=== PATIENT | female | born 1945 | race Caucasian/White ===

== ENCOUNTER 2017-02-01 05:41 | Inpatient (IN) ==
[2017-02-01] MEDS ORDERED: VANCOMYCIN 1,000 MG VIAL ONE (06:02)
[2017-02-01] MEDS ORDERED: ceFAZolin 1,000 MG VIAL ONE (06:03)
[2017-02-01] MEDS ORDERED: SODIUM CHLORIDE 0.9% 100 ML IV ONE ×2 (06:03→09:19)
[2017-02-01] MEDS ORDERED: TRANEXAMIC ACID 1,000 MG/10 ML VIAL IV ONE (06:17)
[2017-02-01] MEDS: LACTATED RINGERS 1,000 ML IV SCH ×5 (06:30→22:30)
--- NOTE | 2017-02-01 06:43 | History and Physical Update ---
History and Physical Update - History and Physical H&P was reviewed, the patient examined and there: are no changes in the patients condition since last H&P was completed.
[2017-02-01] MEDS ORDERED: VANCOMYCIN INJ 1,000 MG in SODIUM CHLORIDE 0.9% 250 ML IV ONE ×2 (07:00→18:30)
[2017-02-01] MEDS ORDERED: PROPOFOL 200 MG/20 ML VIAL IV ONE (07:28)
[2017-02-01] MEDS ORDERED: ONDANSETRON 4 MG/2 ML VIAL ONE (07:28)
[2017-02-01] MEDS ORDERED: LIDOCAINE 1% 5 ML VIAL ONE (07:28)
[2017-02-01] MEDS ORDERED: KETOROLAC 30 MG/1 ML VIAL ONE (07:28)
[2017-02-01] MEDS ORDERED: PANTOPRAZOLE 40 MG TABLET PO PRN (08:03)
[2017-02-01] MEDS ORDERED: ONDANSETRON 4 MG/2 ML VIAL IV PRN (08:04)
[2017-02-01] MEDS ORDERED: MORPHINE 2 MG/1 ML SYRINGE IV PRN ×2 (08:04)
[2017-02-01] MEDS ORDERED: MAGNESIUM HYDROXIDE SUSP 30 ML UDCUP PO PRN (08:04)
[2017-02-01] MEDS ORDERED: oxyCODONE IR 5 MG TABLET PO PRN ×2 (08:04)
[2017-02-01] MEDS ORDERED: diphenhydrAMINE CAP 25 MG CAPSULE PO PRN (08:04)
[2017-02-01] MEDS ORDERED: BACITRACIN OINT 0.9 GM PACK TOP ONE (08:51)
[2017-02-01] MEDS ORDERED: ROPIVACAINE 0.5% 30 ML VIAL ONE (09:02)
--- NOTE | 2017-02-01 09:02 | Operative Note ---
Date of procedure: 02/01/17 Procedure: DIAGNOSIS: Bilateral knee primary osteoarthrosis PROCEDURE: Left total knee arthroplasty (cpt #42393) SURGEON: Precious SECTIONAL [employer]T MOLD ASSEMBLER: Rodney Chakraborty ANESTHESIA: Spinal converted to general with a postoperative adductor canal block PROCEDURE and FINDINGS: After adequate was induced, the patient's knee was prepped and draped in the usual sterile fashion. The limb was exsanguinated with Esmarch. Tourniquet was inflated to 300 mmHg. A median parapatellar approach was made. Femur was cut using an intramedullary guide and a 4 in 1 cutting jig in 5 degrees of valgus. ACL and menisci were excised. Tibia was cut using intramedullary guide. Patella was cut using freehand technique. Components were trialed. Tibial fin was prepared. Components are cemented in place using Palacos cement and modern cementing techniques. Cement was removed. A 1/8 inch Hemovac drain was placed. The knee was well-balanced and full range of motion with central tracking patella. Deep layers closed with 0-0 Vicryl. Superficial layers were closed with 2-0 and 3-0 Vicryl. Skin was approximated with dasia. Bacitracin and a sterile dressing was applied. Patient was transferred to recovery. A postoperative adductor canal block is anticipated. COMPONENTS: The Shannan Person[employer] system was used. 9 CR standard femur, F natural tibia, 10 mm liner, 35 mm patella TOURNIQUET TIME: 27 minutes Surgeon / Physician: Zion Lang Jr. Discharge Plan - Discharge Medications No Action Lisinopril 10 mg PO DAILY Nabumetone [Relafen] 1,000 mg PO BID Escitalopram [Lexapro] 1 tablet PO DAILY Iron 1 tablet PO BID Darvocet 1 tablet PO DIRECTED PRN PRN Reason: Pain Omeprazole 20 mg PO DAILY PRN PRN Reason: Indigestion Methocarbamol Tab [Robaxin Tab] 750 mg PO DIRECTED PRN PRN Reason: Pain - Follow Up or Referral - Forms/Instructions
[2017-02-01] MEDS ORDERED: SEVOFLURANE 1 UNIT/15 MINUTE INH ONE (09:18)
[2017-02-01] MEDS ORDERED: fentaNYL 100 MCG/2 ML VIAL ONE (09:19)
[2017-02-01] MEDS ORDERED: MIDAZOLAM 2 MG/2 ML VIAL ONE (09:19)
[2017-02-01] MEDS ORDERED: ACETAMINOPHEN 1,000 MG/100 ML VIAL IV ONE (09:19)
[2017-02-01] MEDS ORDERED: LACTATED RINGERS 1,000 ML IV ONE (09:19)
[2017-02-01] MEDS ORDERED: ePHEDrine 50 MG/ML AMP ONE (09:19)
--- NOTE | 2017-02-01 09:58 | XRay Report ---
XR knee 2V LT Indication: Arthroplasty Comparison: None available Findings: Knee arthroplasty has been performed. Component positioning and alignment appears within normal limits. No periprosthetic fracture seen. Impression: Expected postoperative appearance of the left knee post arthroplasty . PROCEDURE INTERPRETED AT [facility] DEPARTMENT OF RADIOLOGY Final Report Signed by: Dr. Ruben Eric
[2017-02-01] MEDS: FERROUS SULFATE 325 MG TABLET PO SCH ×2 (10:57→22:14)
[2017-02-01] MEDS: DOCUSATE SODIUM 100 MG CAPSULE PO SCH ×2 (10:57→22:14)
[2017-02-01] MEDS: ESCITALOPRAM 10 MG TABLET PO SCH (10:57)
[2017-02-01] MEDS: KETOROLAC 15 MG/1 ML VIAL IV SCH ×3 (10:58→22:14)
--- NOTE | 2017-02-01 11:49 | Anesthesia Post-Op ---
Anesthesia Post OP - Post Ansesthetic Evaluation Patient seen in post op: Yes Resp: within normal limits CV: within normal limits Mental: within normal limits Temp: within normal limits [id number]: within normal limits Nausea and Vomiting: within normal limits Pain: within normal limits
--- NOTE | 2017-02-01 15:30 | Orthopedic Progress Note ---
Orthopedics - Subjective Interval history: Comfortable postop. She is anxious to start working with physical therapy. Dressing clean, dry and intact. Active motion 0-45. She can perform straight leg raise. She is neurovascularly unchanged. Plan: Continue with current orders. Exam - Constitutional Vitals: Period Temp Pulse Resp BP Sys/Garcia Pulse Ox Last 24 Hr 97.0 F-97.2 F 62-89 16-20 131-158/61-88 96-100
--- NOTE | 2017-02-01 15:30 | Pulmonology Progress Note ---
Pulmonary - PN: Subj Interval history: Patient is 71-year-old white lady that has had significant arthritis of her knees. She came in today and had a left total knee replacement. She is alert and feeling quite well. She wants to actually try to get up and move around. She did not have any problem with anesthesia and no problems breathing. Patient has a history of breast cancer and hypertension. Overall she has been feeling quite well. Exam (Progress Note) - Constitutional Vitals: Period Temp Pulse Resp BP Sys/Garcia Pulse Ox Last 24 Hr 97.0 F-97.2 F 62-89 16-20 131-158/61-88 96-100 General appearance: normal weight, no acute distress - Head Head exam: Present: normal inspection, normocephalic - Eye Eye exam: Present: EOMI. Absent: scleral icterus Pupils: Present: YVETTE - ENT ENT exam: Present: normal exam - Neck Neck exam: Present: normal inspection. Absent: lymphadenopathy, thyromegaly - Respiratory Respiratory exam: Present: clear to auscultation bilaterally. Absent: wheezes - Cardiovascular Cardiovascular exam: Present: regular rate and rhythm. Absent: gallop, systolic murmur - GI/Abdominal GI/Abdominal exam: Present: normal bowel sounds, soft. Absent: organomegaly, tenderness - Extremities Exam Extremities exam: Present: other (Left knee is splinted.). Absent: calf tenderness, edema - Neurological Exam Neurological exam: Present: alert, oriented X3, CN II-XII intact. Absent: motor sensory deficit - Psychiatric Psychiatric exam: Present: normal affect, normal mood - Skin Skin exam: Present: warm, dry Assessment and Plan (1) Degenerative arthritis Status: Acute Assessment and plan: The patient has significant arthritis and came in for knee replacement. She is doing quite well at present. Current Visit: Yes (2) Status post total left knee replacement Status: Acute Assessment and plan: Patient did well with surgery today and will also start her therapy. She is stable. Current Visit: Yes (3) Hypertension Status: Acute Assessment and plan: The patient's blood pressure and heart rate are stable. Current Visit: Yes
[2017-02-01] MEDS: ACETAMINOPHEN 500 MG TABLET PO SCH ×2 (15:48→22:14)
[2017-02-01] MEDS: METHOCARBAMOL 750 MG TABLET PO PRN (15:49)
[2017-02-01] MEDS: ceFAZolin 2,000 MG in PREMIX 1 EACH IV SCH ×2 (15:50→23:41)
[2017-02-02] MEDS: KETOROLAC 15 MG/1 ML VIAL IV SCH (04:56)
[2017-02-02] MEDS: ACETAMINOPHEN 500 MG TABLET PO SCH ×2 (04:56→09:57)
[2017-02-02] MEDS: FONDAPARINUX 2.5 MG/0.5 ML SYRINGE SUBCUT SCH (05:07)
[2017-02-02 05:52] LABS: Basophils % 0.6 % (0.0-0.8); Eosinophils # 0.2 10*3/uL (0.0-0.87); Eosinophils % 4.6 % (0.00-10.9); Hematocrit 26.3 VOL% (35.7-47.0); Hemoglobin 8.8 GM/DL (12.0-16.0); Immature Granulocytes % 0.4 %; Immature Granulocytes Absolute 0.02 #; Lymphocytes # 0.6 10*3/uL (1.4-4.0); Lymphocytes % 11.8 % (21.3-54.2); Mean Corpuscular HGB Conc 33.5 GM/DL (32-36); Mean Corpuscular Hemoglobin 31 PG (27-34); Mean Corpuscular Volume 93.6 FL (87-102); Mean Platelet Volume 9.8 FL (9.6-12.0); Monocytes # 0.5 10*3/uL (0.11-0.8); Monocytes % 10.1 % (1.7-12.7); Neutrophils # 3.4 10*3/uL (1.4-7.4); Neutrophils % 72.5 % (38.7-73.9); Platelet Count 205 T/CUMM (130-400); Red Blood Count 2.81 MC/CUMM (3.8-5.5); Red Cell Distribution Width 13.2 % (9.3-17.3); White Blood Count 4.7 T/CUMM (4-12)
[2017-02-02 06:19] LABS: Calcium 7.8 MG/DL (8.5-10.1); Osmolality,Calculated 283.3 MOS/KG (273-304); Potassium 4.4 MMOL/L (3.5-5.1)
--- NOTE | 2017-02-02 07:29 | Orthopedic Progress Note ---
Orthopedics - Subjective Interval history: Ms. Santos is comfortable postop. Dressing clean, dry and intact. Left lower extremity neurovascularly unchanged. She can perform straight leg raise. Plan: Mobilize with therapy. Discharge planning. Incentive spirometry encouraged. Exam - Constitutional Vitals: Period Temp Pulse Resp BP Sys/Garcia Pulse Ox Last 24 Hr 97.0 F-98.6 F 62-89 16-20 104-158/49-88 94-100 Results - Labs CBC & BMP: 02/02/17 05:23 02/02/17 05:23
--- NOTE | 2017-02-02 09:45 | Pulmonology Progress Note ---
Pulmonary - PN: Subj Interval history: Patient is 71-year-old white lady that has had significant arthritis of her knees. She came in and had a left total knee replacement. She had a fairly good night and feels better today. Her knee is very sore however. She is getting the drains out. She will continue with physical therapy. Exam (Progress Note) - Constitutional Vitals: Period Temp Pulse Resp BP Sys/Garcia Pulse Ox Last 24 Hr 97.0 F-98.6 F 62-84 16-20 104-147/49-74 94-100 Exam: General appearance: normal weight, no acute distress, she is sitting up and looks comfortable. - Head Head exam: Present: normal inspection, normocephalic - Eye Eye exam: Present: EOMI. Absent: scleral icterus Pupils: Present: YVETTE - ENT ENT exam: Present: normal exam - Neck Neck exam: Present: normal inspection. Absent: lymphadenopathy, thyromegaly - Respiratory Respiratory exam: Present: clear to auscultation bilaterally. Absent: wheezes - Cardiovascular Cardiovascular exam: Present: regular rate and rhythm. Absent: gallop, systolic murmur - GI/Abdominal GI/Abdominal exam: Present: normal bowel sounds, soft. Absent: organomegaly, tenderness - Extremities Exam Extremities exam: Present: other (Left knee looks good and the wound is looking good.). Absent: calf tenderness, edema - Neurological Exam Neurological exam: Present: alert, oriented X3, CN II-XII intact. Absent: motor sensory deficit - Psychiatric Psychiatric exam: Present: normal affect, normal mood - Skin Skin exam: Present: warm, dry Results - Labs CBC & BMP: 02/02/17 05:23 02/02/17 05:23 Assessment and Plan (1) Degenerative arthritis Status: Acute Assessment and plan: The patient has significant arthritis and came in for knee replacement. She is doing quite well at present. She will continue with physical therapy. Current Visit: Yes (2) Status post total left knee replacement Status: Acute Assessment and plan: Patient did well with surgery and had a fairly stable night. Her knee looks good and she is going to start physical therapy. Current Visit: Yes (3) Hypertension Status: Acute Assessment and plan: The patient's blood pressure and heart rate are stable. Current Visit: Yes
[2017-02-02] MEDS: ESCITALOPRAM 10 MG TABLET PO SCH (09:57)
[2017-02-02] MEDS: LISINOPRIL 10 MG TABLET PO SCH (09:57)
[2017-02-02] MEDS: FERROUS SULFATE 325 MG TABLET PO SCH ×2 (09:57→20:30)
[2017-02-02] MEDS: CELECOXIB 200 MG CAPSULE PO SCH (09:57)
[2017-02-02] MEDS: DOCUSATE SODIUM 100 MG CAPSULE PO SCH ×2 (09:57→20:30)
--- NOTE | 2017-02-02 14:26 | Pathology Report from [facility] ---
[facility] ACCESSION # : [id number] PATIENT NAME : Sally Santos ORDERING DR : RINKU RUIZ MD CLINICAL HX: LT knee osteoarthritis POST-OP DX: Same SPECIMEN INFO: LT knee bone & tissue GROSS DESCRIPTION: Received in formalin labeled SALLY SANTOS are fragments of bone, cartilage and adipose tissue measuring collectively 12.5 x 15.6 cm. The articular surfaces are markedly degenerative with areas of subchondral eburnation measuring up to 2.4 cm. Peripheral cartilaginous lipping is also present. Professor Of Violin sections are submitted in one cassette following decalcification. DIAGNOSIS FOR SALLY SANTOS: LEFT KNEE BONE & TISSUE, TOTAL REPLACEMENT: Osteoarthritis. COLLECTED DATE: 02/01/2017 [facility] REPORT DATE: 02/02/2017 ELECTRONICALLY SIGNED BY: Ceci Hollins M.D. 02/02/2017 - 10:26:17 [facility]ENTERArianna
[2017-02-02] MEDS ORDERED: ACETAMINOPHEN 325 MG TABLET PO PRN (15:00)
[2017-02-02] MEDS: METHOCARBAMOL 750 MG TABLET PO PRN (16:15)
[2017-02-02] MEDS: LACTATED RINGERS 1,000 ML IV SCH (19:49)
[2017-02-03] MEDS: FONDAPARINUX 2.5 MG/0.5 ML SYRINGE SUBCUT SCH (06:42)
[2017-02-03 06:53] LABS: Basophils % 0.8 % (0.0-0.8); Eosinophils # 0.2 10*3/uL (0.0-0.87); Eosinophils % 4.1 % (0.00-10.9); Hematocrit 25.2 VOL% (35.7-47.0); Hemoglobin 8.3 GM/DL (12.0-16.0); Immature Granulocytes % 0.4 %; Immature Granulocytes Absolute 0.02 #; Lymphocytes % 18.8 % (21.3-54.2); Mean Corpuscular HGB Conc 32.9 GM/DL (32-36); Mean Corpuscular Hemoglobin 31 PG (27-34); Mean Corpuscular Volume 94.4 FL (87-102); Mean Platelet Volume 10.1 FL (9.6-12.0); Monocytes # 0.7 10*3/uL (0.11-0.8); Monocytes % 13.9 % (1.7-12.7); Neutrophils # 3.2 10*3/uL (1.4-7.4); Platelet Count 198 T/CUMM (130-400); Red Blood Count 2.67 MC/CUMM (3.8-5.5); Red Cell Distribution Width 13.2 % (9.3-17.3); White Blood Count 5.1 T/CUMM (4-12)
--- NOTE | 2017-02-03 07:29 | Discharge Summary ---
Hospital Course - Hospital Course Hospital Course: Ms. Santos was admitted after undergoing an uncomplicated left total knee replacement. She received perioperative DVT and antimicrobial prophylaxis. She received physical therapy. She is discharged home postoperative day #2 in stable condition. Dressings clean, dry and intact. Left lower extremities neurovascularly unchanged. Discharge Plan - Discharge Data Disposition: Home Health Service Condition at Discharge: Stable Discharge Diet: advance to your usual diet Hygiene: may shower Weight Bearing at Discharge: weight bear as tolerated Driving: not until seen by doctor - Discharge Medications New HYDROcodone/ACETAMIN 7.5-325 [[place] 7.5-325] 1 tablet PO Q4H PRN tablet PRN Reason: Pain Moderate (4-7) HYDROcodone/ACETAMIN 7.5-325 [[place] 7.5-325] 2 tablet PO Q4H PRN tablet PRN Reason: Moderate Pain unrelieved by 1 Continue Lisinopril 10 mg PO DAILY Nabumetone [Relafen] 1,000 mg PO BID Escitalopram [Lexapro] 1 tablet PO DAILY Ferrous Sulfate [Iron] 325 mg PO BID Omeprazole 20 mg PO DAILY PRN PRN Reason: Indigestion Methocarbamol Tab [Robaxin Tab] 750 mg PO TID PRN PRN Reason: Pain Discontinued Darvocet 1 tablet PO Q6H PRN PRN Reason: Pain - Follow Up or Referral - Forms/Instructions Additional Discharge Instructions: Daily dry dressing changes. Weightbearing as tolerated. CPM for 3 weeks. Arrange walker and bedside commode for home use. Wear DOMITILA hose for 1 month. Discontinue dasia and Steri-Strip wound on February 12, 2017. Follow-up appointment in 4 weeks. Prescription for [place] 7.5 with 30 tablets was written. Take aspirin 325 mg daily for 21 days. Exam - Constitutional Vitals: Period Temp Pulse Resp BP Sys/Garcia Pulse Ox Last 24 Hr 97.8 F-98.7 F 70-85 17-20 116-134/61-76 95-99 Discharge Results Procedures and tests throughout hospitalization: Pending Orders 02/04/17 04:00 Comp Blood Count Auto Diff IN AM Labs on day of discharge: Labs from last 24 hours 02/03/17 06:10 WBC 5.1 RBC 2.67 L Hgb 8.3 L Hct 25.2 L MCV 94.4 MCH 31 MCHC 32.9 RDW 13.2 Plt Count 198 MPV 10.1 Neut % (Auto) 62.0 Lymph % (Auto) 18.8 L [place] % (Auto) 13.9 H Eos % (Auto) 4.1 Baso % (Auto) 0.8 Neut # (Auto) 3.2 Lymph # (Auto) 1.0 L [place] # (Auto) 0.7 Eos # (Auto) 0.2 Baso # (Auto) 0.0 Immature Gran % 0.4 Nucleated RBC % 0.0 Immature Gran # 0.02 Nucleated RBCs # 0.00 DS: Provider Date of admission: 02/01/17 05:41 Primary care physician: Stefania Doan Attending physician on admission: Zion Lang Jr., Consults: 02/01/17 08:05 Consult to Case Mgmt/Social Srvs [CONS] Routine Reason for Case Mgmt/Social Srvs: Rehab Home Health Equipment Consult Comment: Bedside Commode, CPM, del to rm 323 before D/C; Pt 5ft 9in 221 lbs. Consult to Occupational Therapy [CONS] Routine Reason for Occupational Therapy: Evaluate and Treat Consult Comment: ADL's Consult to Physical Therapy [CONS] Routine Reason for Physical Therapy: Evaluate and Treat Gait Training Start Therapy: Today 02/01/17 10:09 Consult to Physician [CONS] Routine Comment: Consulting Provider: Cecil Workman Consulting Provider Notified: Yes When should Consulting Provider be notified: Now Person Notified: meryr lund Date Notified: 02/01/17 Time Notified: 13:25 Consult Notification Comment: message at 10:15 02/02/17 12:28 Consult to Physical Therapy [CONS] Routine Reason for Physical Therapy: Other Consult Comment: Deliver a Standard Walker before patient D/C home Discharging clinician: Zion Lang Jr., Expected date of discharge: 02/03/17
--- NOTE | 2017-02-03 09:28 | Pulmonology Progress Note ---
Pulmonary - PN: Subj Interval history: Patient is 71-year-old white lady that has had significant arthritis of her knees. She came in and had a left total knee replacement. She has done well while in the hospital and is ambulating with a walker. Her knee is feeling much better. She is doing well and going home today. Exam (Progress Note) - Constitutional Vitals: Period Temp Pulse Resp BP Sys/Garcia Pulse Ox Last 24 Hr 97.8 F-99.1 F 70-100 17-20 116-137/61-76 93-99 Exam: General appearance: normal weight, no acute distress, she is walking with a walker now. - Head Head exam: Present: normal inspection, normocephalic - Eye Eye exam: Present: EOMI. Absent: scleral icterus Pupils: Present: YVETTE - ENT ENT exam: Present: normal exam - Neck Neck exam: Present: normal inspection. Absent: lymphadenopathy, thyromegaly - Respiratory Respiratory exam: Present: clear to auscultation bilaterally. Absent: wheezes - Cardiovascular Cardiovascular exam: Present: regular rate and rhythm. Absent: gallop, systolic murmur - GI/Abdominal GI/Abdominal exam: Present: normal bowel sounds, soft. Absent: organomegaly, tenderness - Extremities Exam Extremities exam: Present: other (Left knee looks good and the wound is looking good. The swelling is better.). Absent: calf tenderness, edema - Neurological Exam Neurological exam: Present: alert, oriented X3, CN II-XII intact. Absent: motor sensory deficit - Psychiatric Psychiatric exam: Present: normal affect, normal mood - Skin Skin exam: Present: warm, dry Results - Labs CBC & BMP: 02/03/17 06:10 02/02/17 05:23 Assessment and Plan (1) Degenerative arthritis Status: Acute Assessment and plan: The patient has significant arthritis and came in for knee replacement. She is doing quite well at present. She will continue with physical therapy. Current Visit: Yes (2) Status post total left knee replacement Status: Acute Assessment and plan: Patient did well with surgery and had a fairly stable night. Her knee is feeling better and she is ambulating with a walker. She is going home today and will continue outpatient physical therapy. Current Visit: Yes (3) Hypertension Status: Acute Assessment and plan: The patient's blood pressure and heart rate are stable. She is medically stable and will continue her present medicines. Current Visit: Yes Specialty Discharge - Follow Up or Referrals Follow up with: Zion Lang Jr., MD [Physician] - 03/04/17 2:25 pm
[2017-02-03] MEDS: ESCITALOPRAM 10 MG TABLET PO SCH (09:46)
[2017-02-03] MEDS: LISINOPRIL 10 MG TABLET PO SCH (09:46)
[2017-02-03] MEDS: DOCUSATE SODIUM 100 MG CAPSULE PO SCH (09:46)
[2017-02-03] MEDS: FERROUS SULFATE 325 MG TABLET PO SCH (09:46)
[2017-02-03] MEDS: CELECOXIB 200 MG CAPSULE PO SCH (09:46)
[2017-02-03 11:21] VITALS: BP 145/76
== END 2017-02-03 13:53 | disposition home health service (06) | DRG 470 ==
LOC: N.SDSINP 05:41 → N.3E 10:07
PROVIDERS: ADMIT Orthopaedic Surgery; ATTEND Orthopaedic Surgery

== ENCOUNTER 2020-12-10 09:25 | Inpatient (IN) ==
[2020-12-10 09:48] LABS: Basophils # 0.1 10*3/uL (0.0-0.2); Basophils % 0.6 % (0.0-0.8); Eosinophils # 0.1 10*3/uL (0.0-0.87); Eosinophils % 1.1 % (0.00-10.9); Hemoglobin 11.3 GM/DL (12.0-16.0); Immature Granulocytes % 0.4 %; Immature Granulocytes Absolute 0.03 #; Lymphocytes # 1.9 10*3/uL (1.4-4.0); Lymphocytes % 24.3 % (21.3-54.2); Mean Corpuscular HGB Conc 30.5 GM/DL (32-36); Mean Corpuscular Volume 97.6 FL (87-102); Mean Platelet Volume 9.8 FL (9.6-12.0); Monocytes % 10.4 % (1.7-12.7); Neutrophils % 63.2 % (38.7-73.9); Platelet Count 262 T/CUMM (130-400); Red Blood Count 3.79 MC/CUMM (3.8-5.5); Red Cell Distribution Width 14.1 % (9.3-17.3); White Blood Count 7.9 T/CUMM (4-12)
[2020-12-10] MEDS ORDERED: DILTIAZEM 50 MG/10 ML VIAL IV STA (09:55)
[2020-12-10 10:05] LABS: Albumin 3.4 G/DL (3.4-5.0); Bilirubin,Total 0.9 MG/DL (0.2-1.0); Calcium 9.1 MG/DL (8.5-10.1); Osmolality,Calculated 286.4 MOS/KG (273-304); Total Protein 6.2 G/DL (6.4-8.2)
[2020-12-10] MEDS: DILTIAZEM INJ 100 MG in SODIUM CHLORIDE 0.9% 100 ML IV SCH ×3 (10:10→21:57)
[2020-12-10 10:24] LABS: Thyroid Stimulating Hormone 1.92 uIU/ml (0.358-3.74)
[2020-12-10 10:27] LABS: PT Patient Result 11.4 SECS (10.5-12.0); Partial Thromboplastin Time 24.4 SECS (23.9-33.8)
[2020-12-10] MEDS ORDERED: ALBUTEROL 2.5 MG/3 ML NEB RESP TX PRN (11:46)
[2020-12-10] MEDS ORDERED: ENOXAPARIN 100 MG/ML SYRINGE SUBCUT SCH (12:00)
[2020-12-10] MEDS: PANTOPRAZOLE 40 MG TABLET PO SCH (12:25)
[2020-12-10] MEDS: LACTATED RINGERS 1,000 ML IV SCH ×2 (13:20→22:00)
[2020-12-10] MEDS ORDERED: DIGOXIN 0.5 MG/2 ML AMP IV ONE (13:41)
[2020-12-10 14:34] LABS: Barbiturates Screen,Urine Negative (Negative); Benzodiazepines Screen,Urine Negative (Negative); Cannabinoid Screen,Urine Negative (Negative); Opiate Screen,Urine Negative (Negative); Phencyclidine Screen,Urine Negative (Negative)
[2020-12-10] MEDS ORDERED: DILTIAZEM 50 MG/10 ML VIAL IV ONE (15:38)
[2020-12-10] MEDS: FERROUS SULFATE 325 MG TABLET PO SCH ×2 (16:12→20:47)
[2020-12-10] MEDS: PYRIDOSTIGMINE 60 MG TABLET PO SCH ×2 (16:12→20:47)
[2020-12-10] MEDS ORDERED: SODIUM CHLORIDE 0.9% 500 ML IV ONE (17:20)
[2020-12-10] MEDS: DONEPEZIL 10 MG TABLET PO SCH (20:47)
[2020-12-10] MEDS: APIXABAN 5 MG TABLET PO SCH (20:47)
[2020-12-10] MEDS: ASCORBIC ACID 500 MG TABLET PO SCH (20:47)
[2020-12-10] MEDS: NABUMETONE 500 MG TABLET PO SCH (20:48)
[2020-12-10] MEDS ORDERED: METOPROLOL TARTRATE 25 MG TABLET PO SCH (21:00)
[2020-12-11] MEDS: LACTATED RINGERS 1,000 ML IV SCH ×2 (03:02→12:57)
[2020-12-11 03:21] LABS: Bilirubin,Urine Negative (Negative); Blood, Urine Negative (Negative); Glucose,Urine (UA) Negative (Negative); Hyaline Casts,Urine 3 /LPF (0-3); Ketones,Urine Negative (Negative); Mucus,Urine Occasional /LPF (Occasional); Nitrite,Urine Negative (Negative); Protein,Urine Negative; RBC,Urine 1 /HPF (0-4); Squamous Epithelial Cell,Urine Occasional /HPF (0-10); Urine Appearance CLEAR (Clear); Urine Color Yellow (Yellow); Urine Specific Gravity 1.011 (1.001-1.035); Urine Urobilinogen < 2.0 EU/DL (0.2-1.0)
[2020-12-11 04:15] LABS: Basophils # 0.1 10*3/uL (0.0-0.2); Basophils % 0.8 % (0.0-0.8); Eosinophils # 0.1 10*3/uL (0.0-0.87); Eosinophils % 1.5 % (0.00-10.9); Hemoglobin 10.4 GM/DL (12.0-16.0); Immature Granulocytes % 0.3 %; Immature Granulocytes Absolute 0.02 #; Lymphocytes # 1.8 10*3/uL (1.4-4.0); Lymphocytes % 29.4 % (21.3-54.2); Mean Corpuscular HGB Conc 31.5 GM/DL (32-36); Mean Corpuscular Volume 95.4 FL (87-102); Mean Platelet Volume 10.2 FL (9.6-12.0); Monocytes % 9.4 % (1.7-12.7); Neutrophils % 58.6 % (38.7-73.9); Platelet Count 210 T/CUMM (130-400); Red Blood Count 3.46 MC/CUMM (3.8-5.5); Red Cell Distribution Width 14.1 % (9.3-17.3); White Blood Count 6.2 T/CUMM (4-12)
[2020-12-11 04:37] LABS: Calcium 8.5 MG/DL (8.5-10.1); Osmolality,Calculated 282.4 MOS/KG (273-304); Potassium 4.4 MMOL/L (3.5-5.1); Risk Ratio 3.19; VLDL CHOLESTEROL 22.8 MG/DL
[2020-12-11] MEDS: DILTIAZEM INJ 100 MG in SODIUM CHLORIDE 0.9% 100 ML IV SCH ×2 (04:42→12:57)
[2020-12-11] MEDS: APIXABAN 5 MG TABLET PO SCH ×2 (08:49→20:37)
[2020-12-11] MEDS: predniSONE 10 MG TABLET PO SCH (08:49)
[2020-12-11] MEDS: PANTOPRAZOLE 40 MG TABLET PO SCH (08:49)
[2020-12-11] MEDS: METOPROLOL TARTRATE 50 MG TABLET PO SCH ×2 (08:49→20:37)
[2020-12-11] MEDS: ASCORBIC ACID 500 MG TABLET PO SCH ×2 (08:49→20:36)
[2020-12-11] MEDS: PYRIDOSTIGMINE 60 MG TABLET PO SCH ×3 (08:50→20:36)
[2020-12-11] MEDS: FERROUS SULFATE 325 MG TABLET PO SCH ×3 (08:50→20:37)
[2020-12-11] MEDS: CHOLECALCIFEROL 5,000 UNIT TABLET PO SCH (08:50)
[2020-12-11] MEDS: ESCITALOPRAM 10 MG TABLET PO SCH (08:50)
[2020-12-11] MEDS: NABUMETONE 500 MG TABLET PO SCH ×2 (09:00→20:40)
[2020-12-11] MEDS: CYANOCOBALAMIN 5000 MCG SL SCH (09:00)
[2020-12-11] MEDS: DILTIAZEM 60 MG TABLET PO SCH ×2 (13:00→18:01)
[2020-12-11] MEDS: DONEPEZIL 10 MG TABLET PO SCH (20:37)
[2020-12-12] MEDS: DILTIAZEM 60 MG TABLET PO SCH ×2 (02:28→06:11)
[2020-12-12] MEDS: LACTATED RINGERS 1,000 ML IV SCH ×3 (03:42→14:16)
[2020-12-12 05:32] LABS: Basophils % 0.4 % (0.0-0.8); Eosinophils # 0.1 10*3/uL (0.0-0.87); Eosinophils % 1.2 % (0.00-10.9); Hematocrit 32.5 VOL% (35.7-47.0); Hemoglobin 10.4 GM/DL (12.0-16.0); Immature Granulocytes % 0.4 %; Immature Granulocytes Absolute 0.03 #; Lymphocytes # 1.6 10*3/uL (1.4-4.0); Mean Corpuscular Volume 96.7 FL (87-102); Mean Platelet Volume 10.8 FL (9.6-12.0); Monocytes % 8.7 % (1.7-12.7); Neutrophils % 68.3 % (38.7-73.9); Platelet Count 217 T/CUMM (130-400); Red Blood Count 3.36 MC/CUMM (3.8-5.5); Red Cell Distribution Width 14.1 % (9.3-17.3); White Blood Count 7.5 T/CUMM (4-12)
[2020-12-12 05:55] LABS: Calcium 8.3 MG/DL (8.5-10.1); Osmolality,Calculated 279.5 MOS/KG (273-304); Potassium 4.8 MMOL/L (3.5-5.1)
[2020-12-12] MEDS: PANTOPRAZOLE 40 MG TABLET PO SCH (08:06)
[2020-12-12] MEDS: PYRIDOSTIGMINE 60 MG TABLET PO SCH ×3 (08:06→20:42)
[2020-12-12] MEDS: APIXABAN 5 MG TABLET PO SCH ×2 (08:06→20:42)
[2020-12-12] MEDS: predniSONE 10 MG TABLET PO SCH (08:06)
[2020-12-12] MEDS: FERROUS SULFATE 325 MG TABLET PO SCH ×3 (08:06→20:42)
[2020-12-12] MEDS: ESCITALOPRAM 10 MG TABLET PO SCH (08:06)
[2020-12-12] MEDS: DILTIAZEM 90 MG TABLET PO SCH ×3 (08:06→17:38)
[2020-12-12] MEDS: METOPROLOL TARTRATE 50 MG TABLET PO SCH (08:06)
[2020-12-12] MEDS: CHOLECALCIFEROL 5,000 UNIT TABLET PO SCH (08:06)
[2020-12-12] MEDS: ASCORBIC ACID 500 MG TABLET PO SCH ×2 (08:06→20:42)
[2020-12-12] MEDS: NABUMETONE 500 MG TABLET PO SCH ×2 (08:10→20:42)
[2020-12-12] MEDS: CYANOCOBALAMIN 5000 MCG SL SCH (08:10)
[2020-12-12] MEDS ORDERED: METOPROLOL TARTRATE 50 MG TABLET PO ONE (09:07)
[2020-12-12] MEDS: DONEPEZIL 10 MG TABLET PO SCH (20:42)
[2020-12-12] MEDS ORDERED: METOPROLOL TARTRATE 100 MG TABLET PO SCH (21:00)
[2020-12-13] MEDS: LACTATED RINGERS 1,000 ML IV SCH ×3 (00:28→20:43)
[2020-12-13] MEDS: DILTIAZEM 90 MG TABLET PO SCH ×4 (00:32→17:16)
[2020-12-13 05:17] LABS: Basophils % 0.5 % (0.0-0.8); Eosinophils # 0.1 10*3/uL (0.0-0.87); Eosinophils % 1.4 % (0.00-10.9); Hematocrit 32.2 VOL% (35.7-47.0); Immature Granulocytes % 0.5 %; Immature Granulocytes Absolute 0.04 #; Lymphocytes # 1.8 10*3/uL (1.4-4.0); Lymphocytes % 22.7 % (21.3-54.2); Mean Corpuscular HGB Conc 31.1 GM/DL (32-36); Mean Corpuscular Volume 98.8 FL (87-102); Mean Platelet Volume 10.4 FL (9.6-12.0); Monocytes % 9.6 % (1.7-12.7); Neutrophils % 65.3 % (38.7-73.9); Platelet Count 221 T/CUMM (130-400); Red Blood Count 3.26 MC/CUMM (3.8-5.5)
[2020-12-13 05:57] LABS: Calcium 8.5 MG/DL (8.5-10.1); Osmolality,Calculated 283.4 MOS/KG (273-304); Potassium 4.4 MMOL/L (3.5-5.1)
[2020-12-13] MEDS: BISOPROLOL 5 MG TABLET PO SCH ×2 (09:26→20:44)
[2020-12-13] MEDS: CHOLECALCIFEROL 5,000 UNIT TABLET PO SCH (09:27)
[2020-12-13] MEDS: ASCORBIC ACID 500 MG TABLET PO SCH ×2 (09:27→20:43)
[2020-12-13] MEDS: APIXABAN 5 MG TABLET PO SCH ×2 (09:28→20:43)
[2020-12-13] MEDS: predniSONE 10 MG TABLET PO SCH (09:31)
[2020-12-13] MEDS: FERROUS SULFATE 325 MG TABLET PO SCH ×3 (09:31→20:43)
[2020-12-13] MEDS: PYRIDOSTIGMINE 60 MG TABLET PO SCH ×3 (09:31→20:43)
[2020-12-13] MEDS: PANTOPRAZOLE 40 MG TABLET PO SCH (09:31)
[2020-12-13] MEDS: ESCITALOPRAM 10 MG TABLET PO SCH (09:32)
[2020-12-13] MEDS: NABUMETONE 500 MG TABLET PO SCH ×2 (09:33→20:43)
[2020-12-13] MEDS: CYANOCOBALAMIN 5000 MCG SL SCH (09:33)
[2020-12-13] MEDS ORDERED: BISOPROLOL 5 MG TABLET PO ONE (12:29)
[2020-12-13] MEDS ORDERED: DIGOXIN 0.5 MG/2 ML AMP IV ONE (14:31)
[2020-12-13] MEDS: DONEPEZIL 10 MG TABLET PO SCH (20:43)
[2020-12-14] MEDS: DILTIAZEM 90 MG TABLET PO SCH ×4 (00:32→20:56)
[2020-12-14 04:49] LABS: Basophils % 0.4 % (0.0-0.8); Eosinophils # 0.1 10*3/uL (0.0-0.87); Eosinophils % 1.1 % (0.00-10.9); Hematocrit 31.6 VOL% (35.7-47.0); Hemoglobin 10.1 GM/DL (12.0-16.0); Immature Granulocytes % 0.4 %; Immature Granulocytes Absolute 0.03 #; Lymphocytes # 1.3 10*3/uL (1.4-4.0); Lymphocytes % 18.7 % (21.3-54.2); Mean Corpuscular Volume 95.5 FL (87-102); Mean Platelet Volume 10.6 FL (9.6-12.0); Monocytes % 9.8 % (1.7-12.7); Neutrophils % 69.6 % (38.7-73.9); Platelet Count 213 T/CUMM (130-400); Red Blood Count 3.31 MC/CUMM (3.8-5.5); Red Cell Distribution Width 13.9 % (9.3-17.3)
[2020-12-14 05:11] LABS: Calcium 8.3 MG/DL (8.5-10.1); Osmolality,Calculated 280.7 MOS/KG (273-304); Potassium 4.6 MMOL/L (3.5-5.1)
[2020-12-14] MEDS: LACTATED RINGERS 1,000 ML IV SCH ×3 (05:25→17:13)
[2020-12-14] MEDS: CHOLECALCIFEROL 5,000 UNIT TABLET PO SCH (10:06)
[2020-12-14] MEDS: BISOPROLOL 5 MG TABLET PO SCH ×2 (10:06→21:00)
[2020-12-14] MEDS: ASCORBIC ACID 500 MG TABLET PO SCH ×2 (10:06→20:59)
[2020-12-14] MEDS: PYRIDOSTIGMINE 60 MG TABLET PO SCH ×3 (10:07→20:58)
[2020-12-14] MEDS: APIXABAN 5 MG TABLET PO SCH ×2 (10:07→20:57)
[2020-12-14] MEDS: FERROUS SULFATE 325 MG TABLET PO SCH ×3 (10:07→20:57)
[2020-12-14] MEDS: ESCITALOPRAM 10 MG TABLET PO SCH (10:07)
[2020-12-14] MEDS: predniSONE 10 MG TABLET PO SCH (10:07)
[2020-12-14] MEDS: PANTOPRAZOLE 40 MG TABLET PO SCH (10:08)
[2020-12-14] MEDS: DOCUSATE SODIUM 100 MG CAPSULE PO SCH (10:08)
[2020-12-14] MEDS: POLYETHYLENE GLYCOL POWDER 17 GM PACK PO SCH (10:09)
[2020-12-14] MEDS: CYANOCOBALAMIN 5000 MCG SL SCH (10:09)
[2020-12-14] MEDS: NABUMETONE 500 MG TABLET PO SCH ×2 (10:10→20:58)
[2020-12-14] MEDS ORDERED: DILTIAZEM CD 300 MG CAPSULE PO SCH (11:30)
[2020-12-14] MEDS: DONEPEZIL 10 MG TABLET PO SCH (20:55)
[2020-12-15] MEDS: LACTATED RINGERS 1,000 ML IV SCH (02:43)
[2020-12-15 06:30] LABS: Basophils % 0.5 % (0.0-0.8); Eosinophils # 0.1 10*3/uL (0.0-0.87); Eosinophils % 1.5 % (0.00-10.9); Hematocrit 31.1 VOL% (35.7-47.0); Immature Granulocytes % 0.3 %; Immature Granulocytes Absolute 0.02 #; Lymphocytes # 1.1 10*3/uL (1.4-4.0); Lymphocytes % 18.2 % (21.3-54.2); Mean Corpuscular HGB Conc 32.2 GM/DL (32-36); Mean Corpuscular Volume 95.1 FL (87-102); Mean Platelet Volume 11.3 FL (9.6-12.0); Monocytes % 10.8 % (1.7-12.7); Neutrophils % 68.7 % (38.7-73.9); Platelet Count 203 T/CUMM (130-400); Red Blood Count 3.27 MC/CUMM (3.8-5.5); Red Cell Distribution Width 14.1 % (9.3-17.3); White Blood Count 6.1 T/CUMM (4-12)
[2020-12-15 06:44] LABS: Calcium 8.5 MG/DL (8.5-10.1); Osmolality,Calculated 278.7 MOS/KG (273-304); Potassium 4.2 MMOL/L (3.5-5.1)
[2020-12-15] MEDS: PANTOPRAZOLE 40 MG TABLET PO SCH (08:53)
[2020-12-15] MEDS: predniSONE 10 MG TABLET PO SCH (08:54)
[2020-12-15] MEDS: FERROUS SULFATE 325 MG TABLET PO SCH ×3 (08:54→21:01)
[2020-12-15] MEDS: PYRIDOSTIGMINE 60 MG TABLET PO SCH ×3 (08:54→21:00)
[2020-12-15] MEDS: CHOLECALCIFEROL 5,000 UNIT TABLET PO SCH (08:54)
[2020-12-15] MEDS: ASCORBIC ACID 500 MG TABLET PO SCH ×2 (08:54→21:00)
[2020-12-15] MEDS: DILTIAZEM 90 MG TABLET PO SCH ×4 (08:54→21:00)
[2020-12-15] MEDS: DOCUSATE SODIUM 100 MG CAPSULE PO SCH ×2 (08:55→09:05)
[2020-12-15] MEDS: APIXABAN 5 MG TABLET PO SCH ×2 (08:55→21:00)
[2020-12-15] MEDS: BISOPROLOL 5 MG TABLET PO SCH ×2 (08:55→21:00)
[2020-12-15] MEDS: ESCITALOPRAM 10 MG TABLET PO SCH (08:55)
[2020-12-15] MEDS: NABUMETONE 500 MG TABLET PO SCH ×2 (09:07→21:01)
[2020-12-15] MEDS: CYANOCOBALAMIN 5000 MCG SL SCH (09:08)
[2020-12-15] MEDS: POLYETHYLENE GLYCOL POWDER 17 GM PACK PO SCH (09:08)
[2020-12-15] MEDS ORDERED: DIGOXIN 0.5 MG/2 ML AMP IV ONE (09:39)
[2020-12-15] MEDS: DONEPEZIL 10 MG TABLET PO SCH (21:01)
[2020-12-16 06:07] LABS: Basophils % 0.5 % (0.0-0.8); Eosinophils # 0.1 10*3/uL (0.0-0.87); Eosinophils % 1.9 % (0.00-10.9); Hematocrit 31.7 VOL% (35.7-47.0); Hemoglobin 10.1 GM/DL (12.0-16.0); Immature Granulocytes % 0.5 %; Immature Granulocytes Absolute 0.03 #; Lymphocytes # 1.1 10*3/uL (1.4-4.0); Lymphocytes % 19.6 % (21.3-54.2); Mean Corpuscular HGB Conc 31.9 GM/DL (32-36); Mean Corpuscular Volume 95.8 FL (87-102); Mean Platelet Volume 10.5 FL (9.6-12.0); Monocytes % 10.7 % (1.7-12.7); Neutrophils % 66.8 % (38.7-73.9); Platelet Count 213 T/CUMM (130-400); Red Blood Count 3.31 MC/CUMM (3.8-5.5); Red Cell Distribution Width 14.2 % (9.3-17.3); White Blood Count 5.8 T/CUMM (4-12)
[2020-12-16 06:17] LABS: Calcium 8.6 MG/DL (8.5-10.1); Osmolality,Calculated 277.7 MOS/KG (273-304); Potassium 4.2 MMOL/L (3.5-5.1)
[2020-12-16] MEDS: BISOPROLOL 5 MG TABLET PO SCH ×2 (08:11→20:27)
[2020-12-16] MEDS: PANTOPRAZOLE 40 MG TABLET PO SCH (08:11)
[2020-12-16] MEDS: DOCUSATE SODIUM 100 MG CAPSULE PO SCH (08:11)
[2020-12-16] MEDS: predniSONE 10 MG TABLET PO SCH (08:11)
[2020-12-16] MEDS: ASCORBIC ACID 500 MG TABLET PO SCH ×2 (08:11→20:27)
[2020-12-16] MEDS: FERROUS SULFATE 325 MG TABLET PO SCH ×3 (08:11→20:27)
[2020-12-16] MEDS: CHOLECALCIFEROL 5,000 UNIT TABLET PO SCH (08:11)
[2020-12-16] MEDS: ESCITALOPRAM 10 MG TABLET PO SCH (08:11)
[2020-12-16] MEDS: DILTIAZEM 90 MG TABLET PO SCH ×4 (08:11→20:26)
[2020-12-16] MEDS: POLYETHYLENE GLYCOL POWDER 17 GM PACK PO SCH (08:12)
[2020-12-16] MEDS: CYANOCOBALAMIN 5000 MCG SL SCH (08:12)
[2020-12-16] MEDS: PYRIDOSTIGMINE 60 MG TABLET PO SCH ×3 (08:12→20:27)
[2020-12-16] MEDS: APIXABAN 5 MG TABLET PO SCH ×2 (08:12→20:27)
[2020-12-16] MEDS: NABUMETONE 500 MG TABLET PO SCH ×2 (08:12→20:27)
[2020-12-16] MEDS ORDERED: DIGOXIN 0.5 MG/2 ML AMP IV ONE (09:51)
[2020-12-16] MEDS: DONEPEZIL 10 MG TABLET PO SCH (20:27)
[2020-12-17 04:35] LABS: Basophils % 0.5 % (0.0-0.8); Eosinophils # 0.1 10*3/uL (0.0-0.87); Eosinophils % 1.4 % (0.00-10.9); Hematocrit 31.7 VOL% (35.7-47.0); Hemoglobin 10.1 GM/DL (12.0-16.0); Immature Granulocytes % 0.3 %; Immature Granulocytes Absolute 0.02 #; Lymphocytes # 1.4 10*3/uL (1.4-4.0); Lymphocytes % 21.1 % (21.3-54.2); Mean Corpuscular HGB Conc 31.9 GM/DL (32-36); Mean Corpuscular Volume 95.8 FL (87-102); Mean Platelet Volume 10.9 FL (9.6-12.0); Monocytes % 10.8 % (1.7-12.7); Neutrophils % 65.9 % (38.7-73.9); Platelet Count 222 T/CUMM (130-400); Red Blood Count 3.31 MC/CUMM (3.8-5.5); Red Cell Distribution Width 14.3 % (9.3-17.3); White Blood Count 6.4 T/CUMM (4-12)
[2020-12-17 04:53] LABS: Calcium 8.9 MG/DL (8.5-10.1); Osmolality,Calculated 279.5 MOS/KG (273-304); Potassium 4.2 MMOL/L (3.5-5.1)
[2020-12-17] MEDS: BISOPROLOL 5 MG TABLET PO SCH ×2 (08:30→20:46)
[2020-12-17] MEDS: APIXABAN 5 MG TABLET PO SCH ×2 (08:31→20:46)
[2020-12-17] MEDS: PYRIDOSTIGMINE 60 MG TABLET PO SCH ×3 (08:31→20:47)
[2020-12-17] MEDS: VERAPAMIL 80 MG TABLET PO SCH ×3 (08:31→20:46)
[2020-12-17] MEDS: PANTOPRAZOLE 40 MG TABLET PO SCH (08:31)
[2020-12-17] MEDS: ESCITALOPRAM 10 MG TABLET PO SCH (08:31)
[2020-12-17] MEDS: predniSONE 10 MG TABLET PO SCH (08:31)
[2020-12-17] MEDS: CHOLECALCIFEROL 5,000 UNIT TABLET PO SCH (08:31)
[2020-12-17] MEDS: FERROUS SULFATE 325 MG TABLET PO SCH ×3 (08:31→20:46)
[2020-12-17] MEDS: DOCUSATE SODIUM 100 MG CAPSULE PO SCH (08:31)
[2020-12-17] MEDS: ASCORBIC ACID 500 MG TABLET PO SCH ×2 (08:31→20:46)
[2020-12-17] MEDS: CYANOCOBALAMIN 5000 MCG SL SCH (08:32)
[2020-12-17] MEDS: NABUMETONE 500 MG TABLET PO SCH ×2 (08:32→20:47)
[2020-12-17] MEDS: POLYETHYLENE GLYCOL POWDER 17 GM PACK PO SCH (08:32)
[2020-12-17] MEDS ORDERED: FUROSEMIDE 40 MG/5 ML UDCUP PO SCH (09:30)
[2020-12-17] MEDS: FUROSEMIDE 40 MG TABLET PO SCH (10:04)
[2020-12-17] MEDS: POTASSIUM CHLORIDE 20 MEQ TABLET PO SCH (10:04)
[2020-12-17] MEDS ORDERED: DIGOXIN 0.125 MG TABLET PO SCH (13:00)
[2020-12-17] MEDS: DONEPEZIL 10 MG TABLET PO SCH (20:46)
[2020-12-18 05:09] LABS: Basophils % 0.7 % (0.0-0.8); Eosinophils # 0.1 10*3/uL (0.0-0.87); Eosinophils % 1.4 % (0.00-10.9); Hematocrit 31.5 VOL% (35.7-47.0); Hemoglobin 10.1 GM/DL (12.0-16.0); Immature Granulocytes % 0.3 %; Immature Granulocytes Absolute 0.02 #; Lymphocytes # 1.3 10*3/uL (1.4-4.0); Lymphocytes % 21.6 % (21.3-54.2); Mean Corpuscular HGB Conc 32.1 GM/DL (32-36); Mean Platelet Volume 10.9 FL (9.6-12.0); Monocytes % 9.1 % (1.7-12.7); Neutrophils % 66.9 % (38.7-73.9); Platelet Count 228 T/CUMM (130-400); Red Blood Count 3.28 MC/CUMM (3.8-5.5); Red Cell Distribution Width 14.5 % (9.3-17.3); White Blood Count 5.8 T/CUMM (4-12)
[2020-12-18 05:39] LABS: Osmolality,Calculated 278.7 MOS/KG (273-304); Potassium 4.4 MMOL/L (3.5-5.1)
[2020-12-18] MEDS ORDERED: FUROSEMIDE 40 MG TABLET PO SCH (09:50)
[2020-12-18] MEDS: ASCORBIC ACID 500 MG TABLET PO SCH (10:00)
[2020-12-18] MEDS: PANTOPRAZOLE 40 MG TABLET PO SCH (10:00)
[2020-12-18] MEDS: predniSONE 10 MG TABLET PO SCH (10:00)
[2020-12-18] MEDS: CHOLECALCIFEROL 5,000 UNIT TABLET PO SCH (10:00)
[2020-12-18] MEDS: BISOPROLOL 5 MG TABLET PO SCH (10:00)
[2020-12-18] MEDS: POTASSIUM CHLORIDE 20 MEQ TABLET PO SCH (10:00)
[2020-12-18] MEDS: ESCITALOPRAM 10 MG TABLET PO SCH (10:01)
[2020-12-18] MEDS: APIXABAN 5 MG TABLET PO SCH (10:01)
[2020-12-18] MEDS: VERAPAMIL 80 MG TABLET PO SCH (10:01)
[2020-12-18] MEDS: FERROUS SULFATE 325 MG TABLET PO SCH ×2 (10:01→14:15)
[2020-12-18] MEDS: PYRIDOSTIGMINE 60 MG TABLET PO SCH ×2 (10:02→14:15)
[2020-12-18] MEDS: FUROSEMIDE 40 MG TABLET PO SCH (10:09)
[2020-12-18] MEDS: POLYETHYLENE GLYCOL POWDER 17 GM PACK PO SCH (12:22)
[2020-12-18] MEDS: NABUMETONE 500 MG TABLET PO SCH (12:22)
[2020-12-18] MEDS: DOCUSATE SODIUM 100 MG CAPSULE PO SCH (12:22)
[2020-12-18] MEDS: CYANOCOBALAMIN 5000 MCG SL SCH (12:22)
[2020-12-18] MEDS ORDERED: VERAPAMIL 80 MG TABLET PO SCH (13:00)
[2020-12-18 13:10] VITALS: BP 123/64
== END 2020-12-18 16:50 | disposition home health service (06) | DRG 281 ==
LOC: N.ED 09:25 → N.EDINP 11:46 → SUATTDRO 11:46 → N.ICU 12:59 → N.TELEN 12-11 22:57
PROVIDERS: ADMIT Internal Medicine; ATTEND Internal Medicine

== ENCOUNTER 2021-01-11 11:38 | Observation (INO) ==
[2021-01-11] MEDS ORDERED: DILTIAZEM 50 MG/10 ML VIAL IV STA (12:10)
[2021-01-11 12:42] LABS: Basophils % 0.3 % (0.0-0.8); Eosinophils % 0.2 % (0.00-10.9); Hemoglobin 11.3 GM/DL (12.0-16.0); Immature Granulocytes % 0.4 %; Immature Granulocytes Absolute 0.04 #; Lymphocytes # 0.8 10*3/uL (1.4-4.0); Lymphocytes % 8.9 % (21.3-54.2); Mean Corpuscular HGB Conc 32.3 GM/DL (32-36); Mean Corpuscular Volume 97.8 FL (87-102); Mean Platelet Volume 10.4 FL (9.6-12.0); Monocytes % 5.2 % (1.7-12.7); Platelet Count 246 T/CUMM (130-400); Red Blood Count 3.58 MC/CUMM (3.8-5.5); Red Cell Distribution Width 15.5 % (9.3-17.3); White Blood Count 9.4 T/CUMM (4-12)
[2021-01-11 12:53] LABS: INR 1.3; PT Patient Result 14.2 SECS (10.5-12.0)
[2021-01-11 13:06] LABS: Albumin 3.5 G/DL (3.4-5.0); Bilirubin,Total 0.9 MG/DL (0.2-1.0); Calcium 9.2 MG/DL (8.5-10.1); Osmolality,Calculated 279.1 MOS/KG (273-304); Potassium 4.4 MMOL/L (3.5-5.1); Total Protein 6.2 G/DL (6.4-8.2)
[2021-01-11] MEDS ORDERED: ONDANSETRON 4 MG/2 ML VIAL IV PRN (13:42)
[2021-01-11] MEDS ORDERED: POTASSIUM CHLORIDE 20 MEQ TABLET PO PRN (13:42)
[2021-01-11] MEDS ORDERED: MAGNESIUM SULF RIDER 4 GM/100 ML PREMIX IV PRN (13:42)
[2021-01-11] MEDS ORDERED: diphenhydrAMINE CAP 25 MG CAPSULE PO PRN (13:42)
[2021-01-11] MEDS ORDERED: BISACODYL 5 MG TABLET PO PRN (13:42)
[2021-01-11] MEDS ORDERED: MORPHINE 4 MG/1 ML VIAL IV PRN (13:42)
[2021-01-11] MEDS ORDERED: ALUMINUM/MAGNES/SIMETH MAX STR 30 ML UDCUP PO PRN (13:42)
[2021-01-11] MEDS ORDERED: SIMETHICONE CHEW 125 MG TABLET PO PRN (13:42)
[2021-01-11] MEDS ORDERED: LACTULOSE 20 GM/30 ML UDCUP PO PRN (13:42)
[2021-01-11] MEDS ORDERED: hydrALAZINE 20 MG/1 ML VIAL IV PRN (13:42)
[2021-01-11] MEDS ORDERED: MAGNESIUM SULF RIDER 2 GM/50 ML PREMIX IV PRN (13:42)
[2021-01-11] MEDS ORDERED: CALCIUM CARBONATE CHEW 500 MG TABLET PO PRN (13:42)
[2021-01-11] MEDS ORDERED: ACETAMINOPHEN 325 MG TABLET PO PRN (13:42)
[2021-01-11] MEDS ORDERED: ZALEPLON 5 MG CAPSULE PO PRN (13:42)
[2021-01-11] MEDS: DILTIAZEM 90 MG TABLET PO SCH ×3 (15:19→21:18)
[2021-01-11] MEDS: PYRIDOSTIGMINE 60 MG TABLET PO SCH ×2 (15:19→21:17)
[2021-01-11] MEDS: AMIODARONE 200 MG TABLET PO SCH ×2 (15:19→21:18)
[2021-01-11] MEDS: APIXABAN 5 MG TABLET PO SCH (21:18)
[2021-01-11] MEDS: BISOPROLOL 5 MG TABLET PO SCH (21:19)
[2021-01-11] MEDS: DONEPEZIL 10 MG TABLET PO SCH (21:19)
[2021-01-12 05:59] LABS: Basophils % 0.5 % (0.0-0.8); Eosinophils # 0.1 10*3/uL (0.0-0.87); Hematocrit 30.4 VOL% (35.7-47.0); Hemoglobin 9.6 GM/DL (12.0-16.0); Immature Granulocytes % 0.5 %; Immature Granulocytes Absolute 0.03 #; Lymphocytes # 1.1 10*3/uL (1.4-4.0); Lymphocytes % 19.3 % (21.3-54.2); Mean Corpuscular HGB Conc 31.6 GM/DL (32-36); Mean Platelet Volume 10.2 FL (9.6-12.0); Monocytes % 9.2 % (1.7-12.7); Neutrophils % 68.5 % (38.7-73.9); Platelet Count 205 T/CUMM (130-400); Red Blood Count 3.07 MC/CUMM (3.8-5.5); Red Cell Distribution Width 15.5 % (9.3-17.3); White Blood Count 5.5 T/CUMM (4-12)
[2021-01-12 07:03] LABS: Calcium 8.7 MG/DL (8.5-10.1); Osmolality,Calculated 277.1 MOS/KG (273-304); Potassium 3.8 MMOL/L (3.5-5.1); Thyroid Stimulating Hormone 1.63 uIU/ml (0.358-3.74)
[2021-01-12] MEDS: predniSONE 10 MG TABLET PO SCH (08:16)
[2021-01-12] MEDS: APIXABAN 5 MG TABLET PO SCH ×2 (08:17→20:13)
[2021-01-12] MEDS: IRON (CARBONYL) 45 MG TABLET PO SCH (08:17)
[2021-01-12] MEDS: DILTIAZEM 90 MG TABLET PO SCH ×2 (08:17→15:02)
[2021-01-12] MEDS: COENZYME Q10 100 MG CAPSULE PO SCH (08:17)
[2021-01-12] MEDS: BISOPROLOL 5 MG TABLET PO SCH ×2 (08:17→20:14)
[2021-01-12] MEDS: ESCITALOPRAM 10 MG TABLET PO SCH (08:17)
[2021-01-12] MEDS: PANTOPRAZOLE 40 MG TABLET PO SCH (08:17)
[2021-01-12] MEDS: PYRIDOSTIGMINE 60 MG TABLET PO SCH ×3 (08:18→20:13)
[2021-01-12] MEDS: CHOLECALCIFEROL 5,000 UNIT TABLET PO SCH (08:18)
[2021-01-12] MEDS: AMIODARONE 200 MG TABLET PO SCH ×2 (08:18→20:14)
[2021-01-12] MEDS: CYANOCOBALAMIN 5000 MCG SL SCH (08:18)
[2021-01-12] MEDS ORDERED: PANTOPRAZOLE 40 MG TABLET PO SCH (09:00)
[2021-01-12] MEDS ORDERED: MIDAZOLAM 10 MG/2 ML VIAL ONE (11:11)
[2021-01-12] MEDS ORDERED: MIDAZOLAM 2 MG/2 ML VIAL IV ONE (11:15)
[2021-01-12] MEDS ORDERED: fentaNYL 100 MCG/2 ML VIAL IV ONE (14:51)
[2021-01-12] MEDS: DONEPEZIL 10 MG TABLET PO SCH (20:13)
[2021-01-13 05:23] LABS: Basophils % 0.4 % (0.0-0.8); Eosinophils # 0.1 10*3/uL (0.0-0.87); Eosinophils % 1.3 % (0.00-10.9); Hematocrit 29.9 VOL% (35.7-47.0); Hemoglobin 9.1 GM/DL (12.0-16.0); Immature Granulocytes % 0.4 %; Immature Granulocytes Absolute 0.03 #; Lymphocytes # 1.1 10*3/uL (1.4-4.0); Lymphocytes % 16.4 % (21.3-54.2); Mean Corpuscular HGB Conc 30.4 GM/DL (32-36); Mean Corpuscular Volume 99.7 FL (87-102); Mean Platelet Volume 10.1 FL (9.6-12.0); Monocytes % 10.3 % (1.7-12.7); Neutrophils % 71.2 % (38.7-73.9); Platelet Count 204 T/CUMM (130-400); Red Cell Distribution Width 15.4 % (9.3-17.3); White Blood Count 6.7 T/CUMM (4-12)
[2021-01-13 05:42] LABS: Calcium 8.4 MG/DL (8.5-10.1); Osmolality,Calculated 283.7 MOS/KG (273-304); Potassium 4.7 MMOL/L (3.5-5.1)
[2021-01-13] MEDS: ESCITALOPRAM 10 MG TABLET PO SCH (09:59)
[2021-01-13] MEDS: PYRIDOSTIGMINE 60 MG TABLET PO SCH ×2 (10:00→14:45)
[2021-01-13] MEDS: CHOLECALCIFEROL 5,000 UNIT TABLET PO SCH (10:01)
[2021-01-13] MEDS: APIXABAN 5 MG TABLET PO SCH (10:01)
[2021-01-13] MEDS: predniSONE 10 MG TABLET PO SCH (10:01)
[2021-01-13] MEDS: AMIODARONE 200 MG TABLET PO SCH (10:02)
[2021-01-13] MEDS: PANTOPRAZOLE 40 MG TABLET PO SCH (10:02)
[2021-01-13] MEDS: COENZYME Q10 100 MG CAPSULE PO SCH (10:03)
[2021-01-13] MEDS: IRON (CARBONYL) 45 MG TABLET PO SCH (10:04)
[2021-01-13] MEDS: CYANOCOBALAMIN 5000 MCG SL SCH (10:05)
[2021-01-13 12:58] VITALS: BP 109/37
[2021-01-22] MEDS ORDERED: AMIODARONE 200 MG TABLET PO SCH (09:00)
== END 2021-01-13 15:12 | disposition home or self-care (01) ==
LOC: N.EDINP 11:38 → N.ED 11:38 → N.TELEN 14:20
PROVIDERS: ADMIT Internal Medicine Cardiovascular Disease; ATTEND Internal Medicine Cardiovascular Disease